=== PATIENT | male | born 1940 | race Caucasian/White ===

== ENCOUNTER 2019-09-08 22:24 | Inpatient (IN) | payer MEDICARE ==
[~2019-09-08] VITALS: Ht 170.2 cm; Wt 55.0 kg
[~2019-09-08 22:24] MED LIST: ASPI325T17 PO; ATOR40TA78 PO; CLOP75TA PO; IBUP-1222 PO; ISOS60TA36 PO; METO25TA35 PO; NITR0.4T28 SL; TRIA15CR61 TP
[2019-09-08] MEDS: SODIUM CHLORIDE 0.9% 1,000 ML IV SCH (23:39)
[2019-09-08 23:40] VITALS: BP 148/88
[2019-09-09] MEDS ORDERED: ONDANSETRON 2MG/ML, 2ML IVPush PRN
[2019-09-09] MEDS ORDERED: hydrALAzine 20 MG/ML, 1ML IVPush PRN
[2019-09-09] MEDS ORDERED: LORazepam 2 MG/ML, 1ML IVPush ONE (00:30)
[2019-09-09] MEDS: NICOTINE 14MG/24 HR PATCH.TD24 TD SCH (01:46)
[2019-09-09 02:15] VITALS: BP 148/88
[2019-09-09 05:43] LABS: BASOPHILS # (AUTO) 0.02 x10^3/uL (0-0.1); BASOPHILS % (AUTO) 0 % (0-1); EOSINOPHILS # (AUTO) 0.24 x10^3/uL (0-0.4); EOSINOPHILS % (AUTO) 5 % (1-7); LYMPHOCYTES # (AUTO) 1.23 x10^3/uL (1-3.4); LYMPHOCYTES % (AUTO) 24 % (22-44); MD NO; MEAN CORPUSCULAR HEMOGLOBIN 29.3 pg (27.5-34.5); MEAN CORPUSCULAR HGB CONC 32.9 g/dL (33.2-36.2); MEAN CORPUSCULAR VOLUME 89.3 fL (81-97); MONOCYTES # (AUTO) 0.58 x10^3/uL (0.2-0.8); MONOCYTES % (AUTO) 12 % (2-9); NEUTROPHILS # (AUTO) 2.99 x10^3/uL (1.8-6.8); NEUTROPHILS % (AUTO) 59 % (42-75); PLATELET COUNT 266 x10^3/uL (130-400); RED BLOOD COUNT 4.03 x10^6/uL (4.38-5.82); RED CELL DISTRIBUTION WIDTH 15.9 % (9.4-14.8)
[2019-09-09 05:55] LABS: CHLORIDE 102 mmol/L (98-107)
[2019-09-09 06:08] LABS: ANION GAP 7 mmol/L (5-15); CALCIUM 8.5 mg/dL (8.5-10.1); CREATININE 0.68 mg/dL (0.7-1.3); TROPONIN I < 0.015 ng/mL (0.000-0.045)
[2019-09-09 06:35] LABS: INTERNATIONAL NORMALIZED RATIO 1.07 (0.93-1.1); PROTHROMBIN TIME 11.4 Seconds (9.6-11.5)
[2019-09-09 07:21] VITALS: BP 106/64
[2019-09-09] MEDS ORDERED: ATORVASTATIN 40 MG TABLET PO SCH (10:00)
[2019-09-09] MEDS: CLOPIDOGREL 75 MG TABLET PO SCH (10:20)
[2019-09-09] MEDS: ISOSORBIDE MONONITRATE ER 60 MG TABLET PO SCH (10:20)
[2019-09-09] MEDS: ASPIRIN 81 MG TABLET EC PO SCH (10:20)
[2019-09-09 12:35] VITALS: BP 112/65
[2019-09-09] MEDS: SODIUM CHLORIDE 0.9% 1,000 ML IV SCH (13:48)
[2019-09-09 19:33] VITALS: BP 120/69
[2019-09-09] MEDS: ATORVASTATIN 40 MG TABLET PO SCH (20:36)
[2019-09-09] MEDS: METOPROLOL TARTRATE 25 MG TAB PO SCH (20:36)
[2019-09-10 01:21] VITALS: BP 125/77
[2019-09-10] MEDS: NICOTINE 14MG/24 HR PATCH.TD24 TD SCH (02:13)
[2019-09-10] MEDS: SODIUM CHLORIDE 0.9% 1,000 ML IV SCH ×4 (02:14→14:05)
[2019-09-10 05:06] LABS: ANION GAP 6 mmol/L (5-15); CALCIUM 8.1 mg/dL (8.5-10.1); CHLORIDE 106 mmol/L (98-107); CREATININE 0.69 mg/dL (0.7-1.3)
[2019-09-10] MEDS: ASPIRIN 81 MG TABLET EC PO SCH (08:08)
[2019-09-10] MEDS: METOPROLOL TARTRATE 25 MG TAB PO SCH ×2 (08:08→20:16)
[2019-09-10 08:09] VITALS: BP 136/82
[2019-09-10] MEDS: ISOSORBIDE MONONITRATE ER 60 MG TABLET PO SCH (08:09)
[2019-09-10] MEDS: CLOPIDOGREL 75 MG TABLET PO SCH (08:40)
[2019-09-10] MEDS ORDERED: SODIUM CHLORIDE 0.9% 1,000 ML IV SCH ×2 (10:00→14:02)
[2019-09-10] MEDS ORDERED: FENTANYL PF 100 MCG/2ML ONE (12:52)
[2019-09-10] MEDS ORDERED: BIVALIRUDIN 250 MG ONE (12:53)
[2019-09-10] MEDS ORDERED: VERAPAMIL 2.5 MG/ML, 2ML ONE (12:53)
[2019-09-10] MEDS ORDERED: TICAGRELOR 90 MG TABLET ONE (12:53)
[2019-09-10] MEDS ORDERED: MIDAZOLAM 1 MG/ML, 2ML ONE (12:53)
[2019-09-10] MEDS ORDERED: LIDOCAINE 2%, 20ML ONE (12:53)
[2019-09-10] MEDS ORDERED: HEPARIN 1,000 UNITS/ML, 10ML ONE (12:53)
[2019-09-10 14:06] VITALS: BP 116/76
[2019-09-10] MEDS ORDERED: MORPHINE SULFATE 4 MG/ML, 1ML IVPush ONE (15:30)
[2019-09-10 19:19] VITALS: BP 129/72
[2019-09-10] MEDS: ATORVASTATIN 40 MG TABLET PO SCH (20:16)
== END 2019-09-10 20:54 | disposition home or self-care (01) | DRG 287 ==
LOC: 5SO 23:24
PROVIDERS: ADMIT Internal Medicine; ATTEND Internal Medicine
PROC: 4A023N7 Measurement of Cardiac Sampling and Pressure, Left Heart, Percutaneous Approach (ICD-10-PCS; principal; 2019-09-10)
PROC: B211YZZ Fluoroscopy of Multiple Coronary Arteries using Other Contrast (ICD-10-PCS; 2019-09-10)
PROC: B215YZZ Fluoroscopy of Left Heart using Other Contrast (ICD-10-PCS; 2019-09-10)
PROC: 4A0335C Measurement of Arterial Flow, Coronary, Percutaneous Approach (ICD-10-PCS; 2019-09-10)
DX: I25.110 Atherosclerotic heart disease of native coronary artery with unstable angina pectoris (principal); J96.10 Chronic respiratory failure, unspecified whether with hypoxia or hypercapnia; E87.1 Hypo-osmolality and hyponatremia; Z95.5 Presence of coronary angioplasty implant and graft; D64.9 Anemia, unspecified; E78.5 Hyperlipidemia, unspecified; F17.210 Nicotine dependence, cigarettes, uncomplicated; I10 Essential (primary) hypertension; I25.2 Old myocardial infarction; I35.8 Other nonrheumatic aortic valve disorders; J44.9 Chronic obstructive pulmonary disease, unspecified; Z79.899 Other long term (current) drug therapy; Z79.82 Long term (current) use of aspirin; Z90.49 Acquired absence of other specified parts of digestive tract
CPT/HCPCS: 36415; 80048; 83735; 84484; 85025; 85610; 93005; 93306; 93356; 93458; 93571; 99156; 99157; C1760; C1894; G0378; J0583; J1644; J2250; J3010; C1769; C1887; J2270; J7030; Q9967